=== PATIENT | male | born 1945 | race African-American/Black ===

== ENCOUNTER 2021-03-27 08:32 | Emergency (ER) | payer MEDICARE, OTHER ==
[~2021-03-27 08:32] MED LIST: ASPIRIN CHEWABL81 MG PO; BUMEX1 MG PO; CARDURA2 MG PO; CEFDINIR300 MG PO; COREG 3.125M3.125 MG PO; COREG 6.25MG6.25 MG PO; COUMADIN1 MG PO; GABAPENTIN600 MG PO; K-TAB ER10 MEQ PO; LIPITOR40 MG PO; MOVANTIK25 MG PO; OXYCODON-ACETA1 EAC1 PO; PERCOCET 7.5/321 TAB PO; ZANTAC150 MG PO
[2021-03-27 11:45] LABS: BASOPHIL 0.8 % (0-2); EOSINOPHIL 5.5 % (0-7); HCT 27.6 % (42.0-52.0); LYMPHOCYTE 22.1 % (15-48); MCH 25.5 pg (25.0-31.0); MCV 87.9 fL (78.0-100.0); MPV 11.1 fL (6.0-9.5); NEUTROPHIL 57.9 % (41-80); NRBC 0; PLT 420 K/uL (150-400); RBC 3.14 M/uL (4.70-6.00); RDW 18.1 % (11.5-14.0); WBC 7.5 K/uL (4.0-10.5)
[2021-03-27 11:46] LABS: ALBUMIN 2.2 g/dL (3.4-5.0); BILIRUBIN - TOTAL 0.3 mg/dL (0.2-1.0); CREATININE 0.67 mg/dL (0.67-1.17); GLOBULIN (CALCULATION) 3.6 g/dL; POTASSIUM 3.8 mmol/L (3.5-5.1); TOTAL PROTEIN 5.8 g/dL (6.4-8.2)
[2021-03-27 11:49] LABS: INR 2.41 (0.9-1.2); PROTHROMBIN TIME 25.3 SECONDS (11.8-13.4)
== END 2021-03-27 12:27 | disposition other institution (70) ==
LOC: FER 08:32
PROVIDERS: Emergency Medicine
DX: S72.351A Displaced comminuted fracture of shaft of right femur, initial encounter for closed fracture (principal); Z23 Encounter for immunization; Z86.73 Personal history of transient ischemic attack (TIA), and cerebral infarction without residual deficits; W19.XXXA Unspecified fall, initial encounter; Y92.129 Unspecified place in nursing home as the place of occurrence of the external cause
CPT/HCPCS: 36415; 73552; 73560; 80053; 85025; 85610; 85730; J1170; J2405

== ENCOUNTER 2021-04-06 12:28 | Emergency (ER) | payer MEDICARE, OTHER ==
[2021-04-06 13:10] LABS: BASOPHIL 0.8 % (0-2); EOSINOPHIL 2.8 % (0-7); HCT 29.5 % (42.0-52.0); HGB 8.6 g/dl (13.2-18.0); LYMPHOCYTE 22.3 % (15-48); MCH 24.6 pg (25.0-31.0); MCHC 29.2 g/dL (32.0-36.0); MCV 84.3 fL (78.0-100.0); MONOCYTE 13.4 % (0-12); MPV 10.4 fL (6.0-9.5); NEUTROPHIL 60.2 % (41-80); NRBC 0; PLT 589 K/uL (150-400); RDW 18.4 % (11.5-14.0); WBC 9.6 K/uL (4.0-10.5)
[2021-04-06 13:27] LABS: INR 3.43 (0.9-1.2); PROTHROMBIN TIME 33.5 SECONDS (11.8-13.4)
[2021-04-06 13:33] LABS: PTT 82.7 SECONDS (24.4-34.7)
[2021-04-06 13:52] LABS: LACTIC ACID 0.9 mmol/L (0.4-1.9)
[2021-04-06 13:57] LABS: ALBUMIN 2.5 g/dL (3.4-5.0); BILIRUBIN - TOTAL 0.5 mg/dL (0.2-1.0); BUN/CREAT RATIO (CALC) 7.1 RATIO; CREATININE 0.7 mg/dL (0.67-1.17); GLOBULIN (CALCULATION) 3.5 g/dL; POTASSIUM 3.8 mmol/L (3.5-5.1)
[2021-04-06 14:49] LABS: BILIRUBIN 1+ mg/dL (NEGATIVE); BLOOD 1+ Ery/uL (NEGATIVE); CLARITY CLOUDY (CLEAR); COLOR YELLOW (YELLOW); GLUCOSE (U) NORMAL (NORMAL); LEUKOCYTES 1+ Leu/uL (NEGATIVE); NITRITE POSITIVE (NEGATIVE); PROTEIN TRACE (LOW) mg/dL (NEGATIVE); SPECIFIC GRAVITY 1.025 (1.001-1.030)
[2021-04-06 15:09] LABS: BACTERIA 4+; URINARY WBC 20-50
== END 2021-04-06 14:30 | disposition home or self-care (01) ==
LOC: FER 12:28
PROVIDERS: Emergency Medicine
DX: I62.02 Nontraumatic subacute subdural hemorrhage (principal); E11.22 Type 2 diabetes mellitus with diabetic chronic kidney disease; R79.89 Other specified abnormal findings of blood chemistry; I12.9 Hypertensive chronic kidney disease with stage 1 through stage 4 chronic kidney disease, or unspecified chronic kidney disease; N18.9 Chronic kidney disease, unspecified; I48.91 Unspecified atrial fibrillation; E78.5 Hyperlipidemia, unspecified; Z20.822 Contact with and (suspected) exposure to COVID-19; Z79.01 Long term (current) use of anticoagulants; Z79.899 Other long term (current) drug therapy
CPT/HCPCS: 36415; 70450; 71045; 80053; 81001; 82140; 82150; 83605; 84145; 84484; 85025; 85610; 85730; 87040; 87076; 87088; 87186; 92950; 93005; 94760; 96374; J2250; J2704; J3430; U0002

== ENCOUNTER 2021-05-05 19:51 | Emergency (ER) | payer MEDICARE, OTHER | END 2021-05-05 23:15 | disposition home or self-care (01) | LOC: FER 19:51 | DX: M54.5 Low back pain (principal); M79.652 Pain in left thigh; M79.651 Pain in right thigh; W19.XXXA Unspecified fall, initial encounter | CPT/HCPCS: 72131; 73552 ==

== ENCOUNTER 2021-05-08 02:33 | Emergency (ER) | payer MEDICARE, OTHER ==
[2021-05-08 06:52] LABS: BASOPHIL 0.1 % (0-2); EOSINOPHIL 4.7 % (0-7); HCT 30.5 % (42.0-52.0); HGB 8.5 g/dl (13.2-18.0); LYMPHOCYTE 13.5 % (15-48); MCH 23.4 pg (25.0-31.0); MCHC 27.9 g/dL (32.0-36.0); MCV 83.8 fL (78.0-100.0); MONOCYTE 9.7 % (0-12); NRBC 0; PLT 422 K/uL (150-400); RBC 3.64 M/uL (4.70-6.00); RDW 18.1 % (11.5-14.0); WBC 14.4 K/uL (4.0-10.5)
[2021-05-08 07:05] LABS: INR 1.06 (0.9-1.2); PROTHROMBIN TIME 13.2 SECONDS (11.8-13.4)
[2021-05-08 07:24] LABS: BILIRUBIN - TOTAL 0.4 mg/dL (0.2-1.0); BUN/CREAT RATIO (CALC) 30.6 RATIO; CREATININE 1.24 mg/dL (0.67-1.17); GLOBULIN (CALCULATION) 6.3 g/dL; POTASSIUM 3.9 mmol/L (3.5-5.1); TOTAL PROTEIN 8.3 g/dL (6.4-8.2)
== END 2021-05-08 14:51 | disposition home or self-care (01) ==
LOC: FER 02:33
PROVIDERS: Emergency Medicine
DX: S09.90XA Unspecified injury of head, initial encounter (principal); I25.10 Atherosclerotic heart disease of native coronary artery without angina pectoris; I10 Essential (primary) hypertension; I48.91 Unspecified atrial fibrillation; E11.9 Type 2 diabetes mellitus without complications; E66.9 Obesity, unspecified; W19.XXXA Unspecified fall, initial encounter; Y92.129 Unspecified place in nursing home as the place of occurrence of the external cause
CPT/HCPCS: 36415; 70450; 72125; 80053; 85025; 85610

== ENCOUNTER 2021-05-15 03:41 | Emergency (ER) | payer MEDICARE, OTHER ==
[2021-05-15 04:10] LABS: BASOPHIL 0.3 % (0-2); EOSINOPHIL 0.1 % (0-7); HCT 28.5 % (42.0-52.0); HGB 7.3 g/dl (13.2-18.0); LYMPHOCYTE 26.8 % (15-48); MCH 23.2 pg (25.0-31.0); MCHC 25.6 g/dL (32.0-36.0); MONOCYTE 9.6 % (0-12); NEUTROPHIL 59.2 % (41-80); NRBC 0.8; PLT 133 K/uL (150-400); RBC 3.14 M/uL (4.70-6.00); WBC 26.7 K/uL (4.0-10.5)
[2021-05-15 04:11] LABS: MCV 90.8 fL (78.0-100.0)
[2021-05-15 05:21] LABS: ALBUMIN 1.1 g/dL (3.4-5.0); ALKALINE PHOSHATASE 234 U/L (46-116); ALT 2200 U/L (16-63); BILIRUBIN - TOTAL 0.4 mg/dL (0.2-1.0); CHLORIDE 112 mmol/L (98-107); CO2 (BICARBONATE) 18 mmol/L (21-32); CREATININE 4.67 mg/dL (0.67-1.17); GLOBULIN (CALCULATION) 5.3 g/dL; GLUCOSE 105 mg/dL (74-106); TOTAL PROTEIN 6.4 g/dL (6.4-8.2)
[2021-05-15 05:28] LABS: BUN 164 mg/dL (7-18)
[2021-05-15 05:29] LABS: POTASSIUM 9.4 mmol/L (3.5-5.1)
== END 2021-05-15 06:40 | disposition expired ==
LOC: FER 03:41
PROVIDERS: Emergency Medicine Emergency Medical Services
DX: I46.9 Cardiac arrest, cause unspecified (principal); I13.0 Hypertensive heart and chronic kidney disease with heart failure and stage 1 through stage 4 chronic kidney disease, or unspecified chronic kidney disease; E11.22 Type 2 diabetes mellitus with diabetic chronic kidney disease; N18.9 Chronic kidney disease, unspecified; I50.9 Heart failure, unspecified; Z86.73 Personal history of transient ischemic attack (TIA), and cerebral infarction without residual deficits
CPT/HCPCS: 36415; 80053; 83605; 84484; 85025; 92950; 96374